=== PATIENT | female | born 1980 | race Caucasian/White ===

== ENCOUNTER 2025-03-16 14:33 | Emergency (ER) | payer MEDICARE, OTHER ==
[~2025-03-16] VITALS: Ht 170.2 cm; Wt 86.0 kg
[~2025-03-16 14:33] MED LIST: ARIP10TA38 PO; DOCU-412 PO; LITH300C3 PO; LITH600C5 PO; TOPI-258 PO
[2025-03-16 14:40] VITALS: TEMP 99.1
[2025-03-16 15:22] VITALS: BP 101/63; PULSE 97; RESP 16; O2SAT 96
[2025-03-16] MEDS ORDERED: SENN-374 PO (15:26)
[2025-03-16] MEDS ORDERED: OXYB5TAB20 PO (15:26)
[2025-03-16] MEDS ORDERED: QUET50TA24 PO (15:26)
[2025-03-16] MEDS ORDERED: SERT-440 PO (15:26)
[2025-03-16] MEDS ORDERED: CLOZ100T11 PO (15:26)
[2025-03-16] MEDS ORDERED: HYDR-5256 PO (15:26)
[2025-03-16] MEDS ORDERED: HALO5TAB2 PO (15:26)
[2025-03-16] MEDS ORDERED: HALO100V36 IM (15:26)
[2025-03-16] MEDS ORDERED: ATOR20TA65 PO (15:26)
[2025-03-16] MEDS ORDERED: LORA10TA7 PO (15:26)
[2025-03-16] MEDS ORDERED: ATEN-73 PO (15:26)
[2025-03-16] MEDS ORDERED: TOPI-257 PO ×2 (15:26→16:14)
[2025-03-16] MEDS ORDERED: GABA-1404 PO (15:26)
[2025-03-16] MEDS: DIPHENOXYLATE/ATROP 2.5-0.025 MG TABLET PO ONE (15:39)
[2025-03-16] MEDS: ONDANSETRON HCL 4 MG/2 ML VIAL IVP ONE (15:39)
[2025-03-16] MEDS: ACETAMINOPHEN 500 MG TABLET PO ONE (15:39)
[2025-03-16] MEDS: SODIUM CHLORIDE 0.9% 2,000 ML IV ONE (15:39)
[2025-03-16 15:43] LABS: CALCIUM, TOTAL 7.8 mg/dL (8.8-10.5); CREATININE 0.78 mg/dL (0.60-1.30); GLOMERULAR FILTR. RATE CALC > 60 mL/min (>60); GLUCOSE,RANDOM 90 mg/dL (70-110); SODIUM SERUM 137 mmol/L (136-145); UREA NITROGEN, BLOOD 7 mg/dL (7-18)
[2025-03-16 15:49] LABS: PLATELET COUNT (AUTO) 260 K/uL (150-450); RED BLOOD CELL COUNT(AUTO) 4.11 MIL/uL (4.00-5.20); RED CELL DISTRIBUTION WIDTH 19.0 % (11.5-14.5); WHITE BLOOD COUNT (AUTO) 13.6 K/uL (4.5-11.0)
[2025-03-16] MEDS ORDERED: QUET100T PO (16:14)
[2025-03-16] MEDS ORDERED: TOPI-258 PO (16:14)
[2025-03-16] MEDS ORDERED: SERT-162 PO (16:14)
[2025-03-16] MEDS ORDERED: ACET-66 PO (17:31)
[2025-03-16] MEDS ORDERED: DIPH-1130 PO (17:31)
[2025-03-16] MEDS ORDERED: ONDA-104 PO (17:31)
== END 2025-03-16 17:51 | disposition home or self-care (01) ==
LOC: EMS 14:33
DX: K52.9 Noninfective gastroenteritis and colitis, unspecified (principal); I10 Essential (primary) hypertension; E78.00 Pure hypercholesterolemia, unspecified; F31.9 Bipolar disorder, unspecified; F17.210 Nicotine dependence, cigarettes, uncomplicated; Z88.5 Allergy status to narcotic agent; Z91.048 Other nonmedicinal substance allergy status; Z79.899 Other long term (current) drug therapy
CPT/HCPCS: 99283; 96374; 80048; 83690; 84703; 85025; 36415; J2405; J7030